=== PATIENT | female | born 1980 | race Caucasian/White ===

== ENCOUNTER 2017-01-25 15:51 | Emergency (ER) | payer MEDICARE, OTHER ==
--- NOTE | 2017-01-25 15:56 | ED Physician Documentation ---
General Adult - HISTORIAN Historian: patient - HPI Stated Complaint: puncture wound arm Chief Complaint: General Adult Onset: minutes Timing: still present Severity: moderate Further Comments: yes (Pt is a 36 yo female with psych d/o from [facility], with hx self mutilation, who states that she stuck a writing pen into her R arm and pushed it under her skin up to her elbow. Pt has a laceration through scar tissue from a previous self-made laceration. Pt states that she was trying to harm herself, trying to hit an artery. She says that she intends to do this again if discharged.) - ROS CONST: no problems EYES/ENT: none CVS/RESP: none GI/: none MS/SKIN/LYMPH: other (laceration L forearm) NEURO/PSYCH: other (psych illness, self mutilation) - SOCIAL HX Smoking History: cigarettes - FAMILY HX Family History: No (not known) - REVIEWED ASSESSMENTS Nursing Assessment Reviewed: Yes Vitals Reviewed: Yes <Von Martin - Last Filed: 01/25/17 19:01> - ROS CONST: other (MARKED DEPRESSION) EYES/ENT: denies: problems with vision CVS/RESP: denies: chest pain GI/: denies: abdominal pain - PAST HX Past History: renal disease, other (CHRONIC DEPRESSION MULTI SUICIDE ATTEMPTS) - VITAL SIGNS Vital Signs: Vital Signs Temp Pulse Resp BP Pulse Ox 98 01/25/17 20:18 <Abelino Cardoza - Last Filed: 01/25/17 21:34> - PAST HX Allergies/Adverse Reactions: Allergies Allergy/AdvReac Type Severity Reaction Status Date / Time adhesive Allergy Verified 01/25/17 16:24 bacitracin Allergy Verified 01/25/17 16:24 bacitracin zinc Allergy Verified 01/25/17 16:24 [From Neosporin ([id number])] cephalexin monohydrate Allergy Verified 01/25/17 16:24 [From Keflex] clindamycin Allergy Verified 01/25/17 16:24 neomycin Allergy Verified 01/25/17 16:24 neomycin sulfate Allergy Verified 01/25/17 16:24 [From Neosporin ([id number])] niacin Allergy Verified 01/25/17 16:24 nicotine [From Nicoderm CQ] Allergy Verified 01/25/17 16:24 Penicillins Allergy Verified 01/25/17 16:24 polymyxin B Allergy Verified 01/25/17 16:24 Home Medications: Ambulatory Orders Medication Instructions Recorded Acetaminophen [Tylenol] 650 mg PO Q6H PRN 01/25/17 Albuterol Sulfate [Proair 2 puff INH QID PRN 01/25/17 Respiclick] Aspirin [Lenore] 325 mg PO DAILY 01/25/17 Baclofen [Baclofen] 5 mg PO TID PRN 01/25/17 Benztropine Mesylate [Cogentin] 0.5 mg PO BID 01/25/17 Benztropine Mesylate [Cogentin] 1 mg PO DAILY PRN 01/25/17 Celecoxib [Celebrex] 200 mg PO 0700 01/25/17 Cholecalciferol [Vitamin D-3] 2,000 unit PO DAILY 01/25/17 Cinacalcet HCl [Sensipar] 30 mg PO DAILY 01/25/17 Citalopram Hydrobromide [Celexa] 10 mg PO DAILY 01/25/17 Clonidine [Catapres-Tts 3] 1 patch TOP SUN18 01/25/17 Diphenhydramine HCl [Ez Nite Sleep] 50 mg PO BID 01/25/17 Docusate Sodium [Colace] 100 mg PO BID PRN 01/25/17 Famotidine [Pepcid] 10 mg PO BID 01/25/17 Haloperidol Lactate [Haldol] 5 mg IM Q6H PRN 01/25/17 Haloperidol [Haldol] 2 mg PO BID 01/25/17 Haloperidol [Haldol] 5 mg PO TID 01/25/17 Loperamide HCl [Immodium] 2 mg PO QID PRN 01/25/17 Lurasidone HCl [Latuda] 80 mg PO HS 01/25/17 Metoprolol Tartrate [Lopressor] 100 mg PO 0700 01/25/17 Metoprolol Tartrate [Lopressor] 150 mg PO HS 01/25/17 Nitroglycerin [Nitrostat] 0.4 mg PO Q15M PRN MDD 3 doses 01/25/17 Ondansetron HCl Rapdis [Zofran ODT] 4 mg PO Q6H 01/25/17 Oxcarbazepine [Trileptal] 300 mg PO TID 01/25/17 Paliperidone Palmitate [Invega 156 mg IM WEEK 01/25/17 Sustenna] Paliperidone [Invega] 6 mg PO HS 01/25/17 Sevelamer HCl [Renagel] 3,200 mg PO TID 01/25/17 Sevelamer HCl [Renagel] 800 mg PO DAILY PRN 01/25/17 Simethicone [Gas-X] 80 mg PO DAILY PRN 01/25/17 Simethicone [Gas-X] 80 mg PO TID 01/25/17 Tramadol HCl [Ultram] 50 mg PO Q6H PRN 01/25/17 Trazodone HCl [Desyrel] 100 mg PO HS 01/25/17 Zolpidem Tartrate 10 mg PO HS 01/25/17 amLODIPine BESYLATE [Norvasc] 10 mg PO DAILY 01/25/17 Procedures Wound Location: upper extremity (L forearm) Wound's Depth, Shape: linear Wound Explored: foreign body removed (a Bic writing pen, extending from the incision site to the antecubital fossa, was removed from the incision site with foreceps.) Betadine Prep?: No (anna) Anesthesia: 1% Lidocaine Wound Debrided: minimal Wound Repaired With: sutures Suture Size/Type: 4:0, nylon Number of Sutures: 5 Layer Closure?: No Sterile Dressing Applied?: Yes <Von Martin - Last Filed: 01/25/17 19:01> Progress - Progress Progress: x-ray R forearm: Metallic foreign bodies within the elbow region. No osseous abnormality. Doxycycline 100 mg po in ER. Care transferred to Dr. Cardoza at 1900. <Von Martin - Last Filed: 01/25/17 19:01> ED Results Lab/Radiology - Lab Results Lab Results: Lab Results 01/25/17 01/25/17 19:45 19:44 WBC 4.20 K/ul K/ul (4.00-12.00) RBC 3.43 M/ul L M/ul (3.90-5.20) Hgb 11.4 g/dL L g/dL (12.0-16.0) Hct 35.8 % % (34.5-46.5) MCV 104.4 fl H fl (80.0-100.0) MCH 33.2 pg pg (28.0-34.0) MCHC 31.8 g/dL g/dL (30.0-36.0) RDW 15.2 % H % (11.3-14.3) Plt Count 123 K/mm3 L K/mm3 (130-400) Neut % (Auto) 68.6 % % (39.0-79.0) Lymph % (Auto) 14.4 % L % (16.0-50.0) [place] % (Auto) 11.3 % H % (0.0-11.0) Eos % (Auto) 3.6 % % (0.0-6.8) Baso % (Auto) 0.5 (0.0-1.5) Neut # (Auto) 2.8 # k/uL # k/uL (1.4-7.7) Lymph # (Auto) 0.6 # k/uL # k/uL (0.6-4.0) [place] # (Auto) 0.5 # k/uL # k/uL (0.0-0.9) Eos # (Auto) 0.2 # k/uL # k/uL (0.0-0.6) Baso # (Auto) 0.0 # k/uL # k/uL (0.0-0.5) Reactive Lymphs % 1.7 % % (0.0-5.0) Reactive Lymphs # 0.1 # k/uL # k/uL (0.0-0.8) Sodium 145 mmol/L mmol/L (136-145) Potassium 4.8 mmol/L mmol/L (3.5-5.0) Chloride 105 mmol/L mmol/L (98-110) Carbon Dioxide 32 mmol/L mmol/L (20-32) BUN 27 mg/dL H mg/dL (10-26) Creatinine 3.9 mg/dL H mg/dL (0.4-1.5) Estimated Creat Clear 94 Est GFR ( Amer) 17 L (60 - ) Est GFR (Non-Af Amer) 14 L (60 - ) Glucose 106 mg/dL H mg/dL (70-99) Calcium 8.1 mg/dL L mg/dL (8.5-10.5) Total Bilirubin 0.3 mg/dL mg/dL (0.2-1.2) AST 25 U/L U/L (0-41) ALT 23 U/L U/L (0-45) Alkaline Phosphatase 524 U/L H U/L (46-116) Total Protein 6.7 g/dL g/dL (6.0-8.5) Albumin 3.9 g/dL g/dL (3.0-5.5) - Orders Orders: ED Orders Category Date Time Status Assess pulse oximetry Q1H Care 01/25/17 19:18 Active FOREARM 2 VIEWS [RAD] Stat Exams 01/25/17 Taken CBC/PLATELET/DIFF Routine Lab 01/25/17 19:44 Completed CMP Routine Lab 01/25/17 19:45 Completed DRUG SCREEN URINE MEDICAL ONLY Routine Lab 01/25/17 Ordered THYROID PANEL (TSH, FT3, FT4) Stat Lab 01/25/17 Ordered UA [URINALYSIS] Routine Lab 01/25/17 Ordered Benztropine Mesylate [Cogentin] Med 01/25/17 21:01 Discontinued 0.5 mg PO NOW ONE Doxycycline Monohydrate [Vibramycin] Med 01/25/17 17:52 Discontinued 100 mg PO NOW ONE Famotidine [Pepcid] Med 01/25/17 21:07 Discontinued 20 mg PO NOW ONE Haloperidol Lactate [Haldol] Med 01/25/17 21:00 Discontinued 2 mg IM NOW ONE Lidocaine 1% 5ml(IM or SUTURE) [Xylocaine] Med 01/25/17 17:06 Discontinued 50 mg .ROUTE .STK-MED ONE Metoprolol Succinate [Toprol Xl] Med 01/25/17 21:04 Discontinued 150 mg PO NOW ONE Zolpidem Tartrate [Ambien] Med 01/25/17 22:00 Ordered 5 mg PO HS diphenhydrAMINE HCL [Benadryl] Med 01/25/17 21:08 Discontinued 50 mg PO NOW ONE traZODone HCL [Desyrel] Med 01/26/17 21:00 Ordered 100 mg PO HS EKG WITH COMPARISON Stat Ther 01/25/17 Ordered <Abelino Cardoza - Last Filed: 01/25/17 21:34> General Adult Physical Exam - PHYSICAL EXAM GENERAL APPEARANCE: mild distress EENT: pharynx normal NECK: normal inspection, supple RESPIRATORY: no resp distress, chest non-tender CVS: reg rate & rhythm, heart sounds normal ABDOMEN: soft BACK: normal inspection SKIN: other (laceration through scar tissue on L forearm (foreign body, a writing pen, removed)) EXTREMITIES: normal range of motion NEURO: motor nml, sensation nml (baseline) <Von Martin - Last Filed: 01/25/17 19:01> Discharge <Von Martin - Last Filed: 01/25/17 19:01> Comments: ANTHONY TRAN W/ dr florentin luong SHE WILL ACCEPT Decision to Admit: NO Date of Decison to Admit: 01/25/17 Decision Time: 21:31 <Abelino Cardoza - Last Filed: 01/25/17 21:34> Clincal Impression: laceration with foreign body, suicide ideation-plan, ch renal failure- dialyhsis [facility] Referrals: Primary Doctor,No [REFERRING] - 2 Days Home Medications: Ambulatory Orders Acetaminophen [Tylenol] 650 mg PO Q6H PRN 01/25/17 Albuterol Sulfate [Proair Respiclick] 2 puff INH QID PRN 01/25/17 Aspirin [Lenore] 325 mg PO DAILY 01/25/17 Baclofen [Baclofen] 5 mg PO TID PRN 01/25/17 Benztropine Mesylate [Cogentin] 0.5 mg PO BID 01/25/17 Benztropine Mesylate [Cogentin] 1 mg PO DAILY PRN 01/25/17 Celecoxib [Celebrex] 200 mg PO 0700 01/25/17 Cholecalciferol [Vitamin D-3] 2,000 unit PO DAILY 01/25/17 Cinacalcet HCl [Sensipar] 30 mg PO DAILY 01/25/17 Citalopram Hydrobromide [Celexa] 10 mg PO DAILY 01/25/17 Clonidine [Catapres-Tts 3] 1 patch TOP SUN18 01/25/17 Diphenhydramine HCl [Ez Nite Sleep] 50 mg PO BID 01/25/17 Docusate Sodium [Colace] 100 mg PO BID PRN 01/25/17 Famotidine [Pepcid] 10 mg PO BID 01/25/17 Haloperidol Lactate [Haldol] 5 mg IM Q6H PRN 01/25/17 Haloperidol [Haldol] 2 mg PO BID 01/25/17 Haloperidol [Haldol] 5 mg PO TID 01/25/17 Loperamide HCl [Immodium] 2 mg PO QID PRN 01/25/17 Lurasidone HCl [Latuda] 80 mg PO HS 01/25/17 Metoprolol Tartrate [Lopressor] 100 mg PO 0700 01/25/17 Metoprolol Tartrate [Lopressor] 150 mg PO HS 01/25/17 Nitroglycerin [Nitrostat] 0.4 mg PO Q15M PRN MDD 3 doses 01/25/17 Ondansetron HCl Rapdis [Zofran ODT] 4 mg PO Q6H 01/25/17 Oxcarbazepine [Trileptal] 300 mg PO TID 01/25/17 Paliperidone Palmitate [Invega Sustenna] 156 mg IM WEEK 01/25/17 Paliperidone [Invega] 6 mg PO HS 01/25/17 Sevelamer HCl [Renagel] 3,200 mg PO TID 01/25/17 Sevelamer HCl [Renagel] 800 mg PO DAILY PRN 01/25/17 Simethicone [Gas-X] 80 mg PO DAILY PRN 01/25/17 Simethicone [Gas-X] 80 mg PO TID 01/25/17 Tramadol HCl [Ultram] 50 mg PO Q6H PRN 01/25/17 Trazodone HCl [Desyrel] 100 mg PO HS 01/25/17 Zolpidem Tartrate 10 mg PO HS 01/25/17 amLODIPine BESYLATE [Norvasc] 10 mg PO DAILY 01/25/17 Condition: Fair Disposition: 02 XFER [facility]
[2017-01-25] MEDS ORDERED: Lidocaine 1% 5ml(IM or SUTURE)(PAIN CLINIC) ONE (17:06)
[2017-01-25] MEDS ORDERED: DOXYCYCLINE MONOHYDRATE 100 MG CAPSULE PO ONE (17:52)
[2017-01-25 19:52] LABS: BASOPHILS % 0.5 (0.0-1.5); EOSINOPHILS % 3.6 % (0.0-6.8); MEAN CORPUSCULAR HEMOGLOBIN 33.2 pg (28.0-34.0); MEAN CORPUSCULAR VOLUME 104.4 fl (80.0-100.0); MONOCYTES % 11.3 % (0.0-11.0); NEUTROPHILS # 2.8 # k/uL (1.4-7.7)
[2017-01-25] MEDS ORDERED: HALOPERIDOL LACTATE 5 MG/ML VIAL IM ONE (21:00)
[2017-01-25] MEDS ORDERED: BENZTROPINE MESYLATE 0.5 MG TAB PO ONE (21:01)
[2017-01-25] MEDS ORDERED: METOPROLOL SUCCINATE 50 MG TAB.ER.24H PO ONE (21:04)
[2017-01-25] MEDS ORDERED: FAMOTIDINE 20 MG TABLET PO ONE (21:07)
[2017-01-25] MEDS ORDERED: diphenhydrAMINE HCL 25 MG TABLET PO ONE (21:08)
[2017-01-25] MEDS ORDERED: ZOLPIDEM TARTRATE 5 MG TABLET PO ONE (21:48)
[2017-01-25] MEDS ORDERED: traZODone HCL 50 MG TABLET ONE (21:48)
[2017-01-25] MEDS ORDERED: ZOLPIDEM TARTRATE 5 MG TABLET PO SCH (22:00)
[2017-01-25 22:20] VITALS: BP 175/115
--- NOTE | 2017-01-26 01:16 | Diagnostic Imaging Report ---
GLORY NICOLE [facility] [address] [facility] [address] [address] Report Submission Date: Jan 25, 2017 4:49:19 PM CDT Patient Study Name: TERESE KEANE Date: Jan 25, 2017 4:24:05 PM CDT Modality Type: CR Gender: F Description: UPPER EXTREMITY : 76 Institution: [facility] Physician: GLORY NICOLE Examination: Plain film forearm History: Possible foreign body Comparison exams: None available Findings: 2 views of the radius and ulna demonstrates normal cortical margins. Projecting over the anterior antecubital fossa and adjacent to the medial aspect of the ulna are metallic foreign bodies. Impression: Metallic foreign bodies within the elbow region as described. No osseous abnormality. Electronically signed on Jan 25, 2017 4:49:19 PM CDT by: Vahe TERRELL
[2017-01-26 05:36] LABS: APPEARANCE,URINE CLOUDY (CLEAR); COLOR,URINE AMBER (YELLOW); OCCULT BLOOD,URINE 3+ (NEGATIVE); UROBILINOGEN URINE 0.2 Eu (0.2-1.0)
[2017-01-26] MEDS ORDERED: traZODone HCL 50 MG TABLET PO SCH (21:00)
== END 2017-01-25 22:10 | disposition short-term general hospital (02) ==
LOC: ED 15:51
DX: S51.822A Laceration with foreign body of left forearm, initial encounter (principal); X78.8XXA Intentional self-harm by other sharp object, initial encounter; Y93.9 Activity, unspecified; Y99.9 Unspecified external cause status; R45.851 Suicidal ideations; N18.6 End stage renal disease
CPT/HCPCS: 73090; 80053; 81002; 84439; 84443; 84481; 85025; 87086; 87186; 93005; J1630; Q0163; 12001; 99283

== ENCOUNTER 2017-11-21 14:06 | Outpatient (CLI) | payer MEDICARE, OTHER ==
--- NOTE | 2017-11-21 15:50 | Diagnostic Imaging Report ---
SANDY POMPA [facility] [address] [facility] [address] [place], [place]. [address] Report Submission Date: Nov 21, 2017 3:15:48 PM CDT Patient Study Name: TERESE KEANE Date: Nov 21, 2017 2:18:20 PM CDT Modality Type: CT\SR Gender: F Description: CT ABD PELVIS W/O CO : 76 Institution: [facility] Physician: SANDY POMPA Examination: CT Abdomen/pelvis History: HEMATURIA; PELVIC PAIN; STONE PROTOCOL (Hx) Comparison exams: None available Technique: CT Abdomen/pelvis without contrast protocol. Findings: Significant bilateral renal atrophy associated with cortical/calyceal calcifications. Ureters described a normal course through the abdomen and pelvis. No abnormal dilation. No central calcifications. Ureterovesicular junctions are within normal limits. Pelvic phleboliths. Liver and spleen are prominent. Gallbladder contracted with what appears to be gallstones centrally. No adjacent fluid. Adrenal glands do not appear to be enlarged. Pancreas difficult to visualize due to exam technique. Cardiac silhouette not enlarged. Mild pericardial thickening. Bowel unopacified limiting evaluation. No mesenteric inflammatory changes or free fluid. No abnormal dilation of the small bowel. Stool throughout the large bowel limiting sensitivity. Appendix is visualized and is without inflammatory changes. Osseous structures demonstrate degenerative changes. Lung bases without infiltrate. No effusion. Numerous soft tissue varices. Impression: Atrophic kidneys associate with bilateral nephrolithiasis. No abnormal ureteric dilation. Hepatosplenomegaly. No abnormal bowel dilation. Significant large bowel stool - constipation. Contracted gallbladder with presumed gallstones. Consider obtaining right upper quadrant ultrasound to better evaluate. No lung base consolidation or effusion. Numerous soft tissue varices. Electronically signed on Nov 21, 2017 3:15:48 PM CDT by: Vahe TERRELL
== END 2017-11-21 14:08 ==
LOC: RAD 14:06
PROVIDERS: ATTEND Family Medicine
DX: R10.9 Unspecified abdominal pain (principal)
CPT/HCPCS: 74176